=== PATIENT | male | born 1960 | race Caucasian/White ===

== ENCOUNTER 2021-05-03 15:48 | Inpatient (IN) | payer OTHER ==
[~2021-05-03] VITALS: Ht 170.2 cm; Wt 99.6 kg
[~2021-05-03 15:48] MED LIST: TAMIFLU 75MG CA75 MG PO
[2021-05-03 20:12] LABS: BASOPHIL 0.2 % (0-2); EOSINOPHIL 0 % (0-5); HCT 15.9 % (42.0-52.0); IRON % SATURATION 97.1 %SAT (20-50); LYMPHOCYTE 3.6 % (15-48); MCH 40.6 pg (25.0-31.0); MCHC 35.2 g/dL (32.0-36.0); MCV 115.2 fL (78.0-100.0); MONOCYTE 7.4 % (0-12); MPV 12.1 fL (6.0-9.5); NEUTROPHIL 88.1 % (41-80); NRBC 0; RBC 1.38 M/uL (4.70-6.00); RDW 17.7 % (11.5-14.0); WBC 5.5 K/uL (4.0-10.5)
[2021-05-03 20:31] LABS: LACTIC ACID 5.7 mmol/L (0.4-1.9)
[2021-05-03 20:40] LABS: HGB 5.6 g/dl (13.2-18.0)
[2021-05-03 20:41] LABS: PLT 48 K/uL (150-400)
[2021-05-03 20:58] LABS: BILIRUBIN - TOTAL 8.2 mg/dL (0.2-1.0); BUN/CREAT RATIO (CALC) 13.7 RATIO; CREATININE 3.87 mg/dL (0.67-1.17); GLOBULIN (CALCULATION) 2.6 g/dL; INR 3.24 (0.9-1.2); POTASSIUM 5.5 mmol/L (3.5-5.1); TOTAL PROTEIN 4.6 g/dL (6.4-8.2)
[2021-05-04 04:46] LABS: BASOPHIL 0 % (0-2); EOSINOPHIL 0 % (0-5); LYMPHOCYTE 5.8 % (15-48); MCHC 33.3 g/dL (32.0-36.0); MONOCYTE 6.8 % (0-12); MPV 11.6 fL (6.0-9.5); NEUTROPHIL 86.7 % (41-80); NRBC 0.7; RBC 1.95 M/uL (4.70-6.00); RDW 21.8 % (11.5-14.0); WBC 2.9 K/uL (4.0-10.5)
[2021-05-04 05:02] LABS: MCH 35.9 pg (25.0-31.0); MCV 107.7 fL (78.0-100.0)
[2021-05-04 05:13] LABS: PLT 35 K/uL (150-400)
[2021-05-04 05:18] LABS: ALBUMIN 2.2 g/dL (3.4-5.0); BILIRUBIN - TOTAL 9.1 mg/dL (0.2-1.0); BUN/CREAT RATIO (CALC) 14.8 RATIO; CREATININE 3.65 mg/dL (0.67-1.17); GLOBULIN (CALCULATION) 2.5 g/dL; POTASSIUM 5.3 mmol/L (3.5-5.1); TOTAL PROTEIN 4.7 g/dL (6.4-8.2)
--- NOTE | 2021-05-04 08:17 | NUR ---
[facility] STARTED AT 0754 AT 125 ML/HR. NO S/S REACTION AFTER 15 MINUTES. VSS AT THIS ASSESSMENT. INCREASED RATE TO 175 ML/HR.
[2021-05-04] MEDS ORDERED: XIFAXAN550 MG PO (09:25)
[2021-05-04] MEDS ORDERED: ALLOPURINOL300 MG PO (09:26)
[2021-05-04] MEDS ORDERED: CONSTULOSE10 GM/15 M PO (09:26)
[2021-05-04] MEDS ORDERED: LOPRESSOR25 MG PO (09:27)
[2021-05-04] MEDS ORDERED: LASIX40 MG PO (09:28)
[2021-05-04] MEDS ORDERED: ALDACTONE100 MG PO (09:28)
[2021-05-04] MEDS ORDERED: PRILOSEC20 MG PO (09:28)
[2021-05-04 11:25] LABS: WBC (FLUID) 6494 WBC/uL
[2021-05-04 11:28] LABS: BILIRUBIN NEGATIVE (NEGATIVE); BLOOD TRACE-INTACT Ery/uL (NEGATIVE); CLARITY CLEAR (CLEAR); COLOR YELLOW (YELLOW); GLUCOSE (U) NORMAL (NORMAL); LEUKOCYTES TRACE Leu/uL (NEGATIVE); NITRITE NEGATIVE (NEGATIVE); PROTEIN NEGATIVE (NEGATIVE); SPECIFIC GRAVITY 1.015 (1.001-1.030); UROBILINOGEN 0.2 mg/dL (0.2-1.0); pH 5.5 (5.0-9.0)
[2021-05-04 11:58] LABS: BACTERIA TRACE; URINARY RBC RARE
[2021-05-04 12:34] LABS: CLARITY (FLUID) HAZY; COLOR (FLUID) YELLOW; RBC (FLUID) 1300 RBC/uL
[2021-05-04 14:59] LABS: HCT 21.5 % (42.0-52.0); HGB 7.4 g/dL (13.2-18.0)
[2021-05-05 04:35] LABS: BASOPHIL 0 % (0-2); EOSINOPHIL 0.2 % (0-5); HCT 20.1 % (42.0-52.0); LYMPHOCYTE 5.7 % (15-48); MCH 35.4 pg (25.0-31.0); MCHC 34.8 g/dL (32.0-36.0); MONOCYTE 8.6 % (0-12); NEUTROPHIL 84.5 % (41-80); NRBC 0; RBC 1.98 M/uL (4.70-6.00); RDW 22.6 % (11.5-14.0); WBC 4.1 K/uL (4.0-10.5)
[2021-05-05 05:02] LABS: INR 3.66 (0.9-1.2); PROTHROMBIN TIME 35.3 SECONDS (11.8-13.4)
[2021-05-05 05:17] LABS: MCV 101.5 fL (78.0-100.0)
[2021-05-05 05:21] LABS: PLT 31 K/uL (150-400)
[2021-05-05 05:22] LABS: ALBUMIN 2.9 g/dL (3.4-5.0); BILIRUBIN - TOTAL 10.5 mg/dL (0.2-1.0); BUN/CREAT RATIO (CALC) 16.3 RATIO; CREATININE 3.32 mg/dL (0.67-1.17); POTASSIUM 4.2 mmol/L (3.5-5.1); TOTAL PROTEIN 4.9 g/dL (6.4-8.2)
[2021-05-06 04:27] LABS: BASOPHIL 0 % (0-2); EOSINOPHIL 0.6 % (0-5); HCT 20.9 % (42.0-52.0); HGB 7.3 g/dl (13.2-18.0); MCH 34.9 pg (25.0-31.0); MCHC 34.9 g/dL (32.0-36.0); MONOCYTE 13.2 % (0-12); MPV 13.2 fL (6.0-9.5); NEUTROPHIL 79.3 % (41-80); NRBC 0; RBC 2.09 M/uL (4.70-6.00); WBC 3.2 K/uL (4.0-10.5)
[2021-05-06 04:33] LABS: PLT 24 K/uL (150-400)
[2021-05-06 04:38] LABS: INR 3.58 (0.9-1.2); PROTHROMBIN TIME 34.7 SECONDS (11.8-13.4)
[2021-05-06 04:50] LABS: ALBUMIN 3.1 g/dL (3.4-5.0); BILIRUBIN - TOTAL 10.4 mg/dL (0.2-1.0); BUN/CREAT RATIO (CALC) 16.5 RATIO; CREATININE 2.78 mg/dL (0.67-1.17); POTASSIUM 3.6 mmol/L (3.5-5.1); TOTAL PROTEIN 5.1 g/dL (6.4-8.2)
[2021-05-07 04:52] LABS: BASOPHIL 0 % (0-2); EOSINOPHIL 1.2 % (0-5); HCT 21.5 % (42.0-52.0); HGB 7.5 g/dl (13.2-18.0); LYMPHOCYTE 7.9 % (15-48); MCHC 34.9 g/dL (32.0-36.0); MCV 100.5 fL (78.0-100.0); MONOCYTE 14.9 % (0-12); MPV 12.4 fL (6.0-9.5); NEUTROPHIL 75.6 % (41-80); NRBC 0; RBC 2.14 M/uL (4.70-6.00); RDW 22.5 % (11.5-14.0); WBC 2.4 K/uL (4.0-10.5)
[2021-05-07 04:56] LABS: PLT 24 K/uL (150-400)
[2021-05-07 05:00] LABS: INR 2.67 (0.9-1.2); PROTHROMBIN TIME 27.5 SECONDS (11.8-13.4)
[2021-05-07 05:07] LABS: ALBUMIN 3.4 g/dL (3.4-5.0); BILIRUBIN - TOTAL 10.9 mg/dL (0.2-1.0); BUN/CREAT RATIO (CALC) 16.8 RATIO; CREATININE 2.44 mg/dL (0.67-1.17); GLOBULIN (CALCULATION) 1.8 g/dL; POTASSIUM 3.4 mmol/L (3.5-5.1); TOTAL PROTEIN 5.2 g/dL (6.4-8.2)
[2021-05-08 05:44] LABS: BASOPHIL 0 % (0-2); EOSINOPHIL 3.9 % (0-5); HCT 19.8 % (42.0-52.0); HGB 6.9 g/dl (13.2-18.0); LYMPHOCYTE 7.8 % (15-48); MCH 35.8 pg (25.0-31.0); MCHC 34.8 g/dL (32.0-36.0); MCV 102.6 fL (78.0-100.0); MONOCYTE 15.6 % (0-12); MPV 11.4 fL (6.0-9.5); NEUTROPHIL 71.6 % (41-80); NRBC 0; RBC 1.93 M/uL (4.70-6.00); RDW 22.7 % (11.5-14.0)
[2021-05-08 05:53] LABS: WBC 1.8 K/uL (4.0-10.5)
[2021-05-08 05:56] LABS: INR 3.95 (0.9-1.2); PROTHROMBIN TIME 37.5 SECONDS (11.8-13.4)
[2021-05-08 06:07] LABS: ALBUMIN 3.5 g/dL (3.4-5.0); BILIRUBIN - TOTAL 12.1 mg/dL (0.2-1.0); BUN/CREAT RATIO (CALC) 18.5 RATIO; CREATININE 2.16 mg/dL (0.67-1.17); GLOBULIN (CALCULATION) 1.6 g/dL; POTASSIUM 3.5 mmol/L (3.5-5.1); TOTAL PROTEIN 5.1 g/dL (6.4-8.2)
[2021-05-08 06:49] LABS: PLT 18 K/uL (150-400)
--- NOTE | 2021-05-08 15:30 | NUR ---
05/08/21 Mr. Fernandez lives at home with his spouse, 22 y/o twin children and a 2 y/o grandson. Mr. Fernandez has someone with him the majority of time. He has a rw and cane. - M/M Rebecca reports the specialist to have said they would be appropriate for Hospice services. The Rebecca state they are not ready for Hospice at this time. The Rebecca were educated re: Hospice being appropriate when they wish to have treatment in the home to address symptoms opposed to returning to the hospital. Nickyy were also informed that an educational visit could be arrange. HH services were also explained.
[2021-05-09 04:21] LABS: BASOPHIL 0 % (0-2); EOSINOPHIL 3.6 % (0-5); HCT 20.3 % (42.0-52.0); LYMPHOCYTE 8.4 % (15-48); MCH 34.8 pg (25.0-31.0); MCHC 34.5 g/dL (32.0-36.0); MPV 13.8 fL (6.0-9.5); NEUTROPHIL 75.4 % (41-80); NRBC 0; RBC 2.01 M/uL (4.70-6.00); RDW 23.2 % (11.5-14.0)
[2021-05-09 04:27] LABS: PLT 18 K/uL (150-400); WBC 1.7 K/uL (4.0-10.5)
[2021-05-09 04:37] LABS: PROTHROMBIN TIME 49.4 SECONDS (11.8-13.4)
[2021-05-09 04:45] LABS: ALBUMIN 3.6 g/dL (3.4-5.0); BILIRUBIN - TOTAL 13.6 mg/dL (0.2-1.0); BUN/CREAT RATIO (CALC) 19.7 RATIO; CREATININE 2.08 mg/dL (0.67-1.17); GLOBULIN (CALCULATION) 1.5 g/dL; POTASSIUM 3.4 mmol/L (3.5-5.1); TOTAL PROTEIN 5.1 g/dL (6.4-8.2)
[2021-05-09 04:49] LABS: INR 5.6 (0.9-1.2)
[2021-05-10] MEDS ORDERED: FUROSEMIDE 40MG40 MG PO (08:01)
[2021-05-10] MEDS ORDERED: MIDODRINE HCL10 MG PO (08:01)
[2021-05-10] MEDS ORDERED: OXY-IR 5MG5 MG PO (08:02)
--- NOTE | 2021-05-10 13:07 | NUR ---
05/10/21 Referals were made to [facility] for a 3in1 and [facility]. Pt educated to affliation. [facility] will deliver to the home. - The Chucking Machine Set Up Operator Tool was requested to see Mr. Fernandez to discusse Medicaid Spend Down and Financial Assistance. Patient was referred to the [employer] to discuss benefits.
== END 2021-05-10 12:25 | disposition home health service (06) | DRG 441 ==
LOC: FER 15:48 → FTCU 21:29 → FICU 05-04 16:47 → FMS 05-09 00:27
PROVIDERS: Allergy & Immunology Allergy; Emergency Medicine; Internal Medicine; Nurse Practitioner; ADMIT Internal Medicine
PROC: 30233N1 Transfusion of Nonautologous Red Blood Cells into Peripheral Vein, Percutaneous Approach (ICD-10-PCS; 2021-05-03)
PROC: 30233N1 Transfusion of Nonautologous Red Blood Cells into Peripheral Vein, Percutaneous Approach (ICD-10-PCS; 2021-05-04)
PROC: 0W9G3ZX Drainage of Peritoneal Cavity, Percutaneous Approach, Diagnostic (ICD-10-PCS; 2021-05-04)
PROC: 30233N1 Transfusion of Nonautologous Red Blood Cells into Peripheral Vein, Percutaneous Approach (ICD-10-PCS; 2021-05-05)
PROC: 30233N1 Transfusion of Nonautologous Red Blood Cells into Peripheral Vein, Percutaneous Approach (ICD-10-PCS; 2021-05-08)
PROC: 3E033XZ Introduction of Vasopressor into Peripheral Vein, Percutaneous Approach (ICD-10-PCS; 2021-05-08)
PROC: 30233N1 Transfusion of Nonautologous Red Blood Cells into Peripheral Vein, Percutaneous Approach (ICD-10-PCS; principal; 2021-05-09)
PROC: 30233K1 Transfusion of Nonautologous Frozen Plasma into Peripheral Vein, Percutaneous Approach (ICD-10-PCS; 2021-05-09)
DX: K76.7 Hepatorenal syndrome (principal); K65.2 Spontaneous bacterial peritonitis; D61.818 Other pancytopenia; D68.9 Coagulation defect, unspecified; E87.2 Acidosis; N17.9 Acute kidney failure, unspecified; R18.8 Other ascites; K62.5 Hemorrhage of anus and rectum; D62 Acute posthemorrhagic anemia; Z20.822 Contact with and (suspected) exposure to COVID-19; I95.9 Hypotension, unspecified; Z66 Do not resuscitate; K72.90 Hepatic failure, unspecified without coma; K74.60 Unspecified cirrhosis of liver; G47.30 Sleep apnea, unspecified; K21.9 Gastro-esophageal reflux disease without esophagitis; K59.00 Constipation, unspecified; M10.9 Gout, unspecified; N18.9 Chronic kidney disease, unspecified; D63.1 Anemia in chronic kidney disease; Z98.890 Other specified postprocedural states; Z87.891 Personal history of nicotine dependence
CPT/HCPCS: 36415; 36430; 36600; 71045; 76705; 80053; 81001; 82043; 82270; 82803; 83540; 83550; 83605; 84145; 84300; 84484; 85014; 85018; 85025; 85610; 85730; 86850; 86900; 86901; 86922; 87040; 87070; 87088; 87205; 89051; 93005; 97162; 97166; 97530-GP; 97535; J0692; J2543; J3430; J7030; J7040; J7050; J7070; P9016; P9017; P9046; U0002

== ENCOUNTER 2021-05-23 15:59 | Day surgery (SDCO) | payer OTHER ==
[~2021-05-23] VITALS: Ht 170.2 cm; Wt 99.8 kg
[~2021-05-23 15:59] MED LIST changes: +ALDACTONE100 MG PO; +ALLOPURINOL300 MG PO; +CONSTULOSE10 GM/15 M PO; +FUROSEMIDE 40MG40 MG PO; +LASIX40 MG PO; +LOPRESSOR25 MG PO; +MIDODRINE HCL10 MG PO; +OXY-IR 5MG5 MG PO; +PRILOSEC20 MG PO; +XIFAXAN550 MG PO
[2021-05-23 18:24] LABS: BASOPHIL 0 % (0-2); EOSINOPHIL 0.3 % (0-5); HCT 18.6 % (42.0-52.0); LYMPHOCYTE 6.8 % (15-48); MCH 35.2 pg (25.0-31.0); MCHC 33.3 g/dL (32.0-36.0); MCV 105.7 fL (78.0-100.0); NEUTROPHIL 83.3 % (41-80); NRBC 0; RBC 1.76 M/uL (4.70-6.00); RDW 27.5 % (11.5-14.0); WBC 3.2 K/uL (4.0-10.5)
[2021-05-23 18:26] LABS: HGB 6.2 g/dl (13.2-18.0)
[2021-05-23 18:27] LABS: PLT 26 K/uL (150-400)
[2021-05-23 18:35] LABS: INR 4.33 (0.9-1.2); PROTHROMBIN TIME 40.3 SECONDS (11.8-13.4)
[2021-05-23 18:36] LABS: PTT 49.3 SECONDS (24.4-34.7)
[2021-05-23 18:53] LABS: LACTIC ACID 4.3 mmol/L (0.4-1.9)
[2021-05-23 19:00] LABS: ALBUMIN 3.7 g/dL (3.4-5.0); BILIRUBIN - TOTAL 13.6 mg/dL (0.2-1.0); CREATININE 8.17 mg/dL (0.67-1.17); GLOBULIN (CALCULATION) 2.2 g/dL; TOTAL PROTEIN 5.9 g/dL (6.4-8.2)
[2021-05-24 01:40] LABS: INR 3.29 (0.9-1.2); PROTHROMBIN TIME 32.4 SECONDS (11.8-13.4)
[2021-05-24 07:02] LABS: HCT 21.7 % (42.0-52.0); HGB 7.3 g/dl (13.2-18.0); MCH 33.8 pg (25.0-31.0); MCHC 33.6 g/dL (32.0-36.0); MPV 12.8 fL (6.0-9.5); RBC 2.16 M/uL (4.70-6.00); RDW 26.8 % (11.5-14.0); WBC 3.3 K/uL (4.0-10.5)
[2021-05-24 07:36] LABS: CREATININE 8.1 mg/dL (0.67-1.17); PHOSPHORUS 6.2 mg/dL (2.6-4.7)
[2021-05-24 07:37] LABS: MCV 100.5 fL (78.0-100.0)
[2021-05-24 13:08] LABS: BILIRUBIN 3+ mg/dL (NEGATIVE); BLOOD 3+ Ery/uL (NEGATIVE); GLUCOSE (U) NORMAL (NORMAL); LEUKOCYTES 3+ Leu/uL (NEGATIVE); NITRITE NEGATIVE (NEGATIVE); PROTEIN 3+ mg/dL (NEGATIVE); SPECIFIC GRAVITY 1.015 (1.001-1.030); pH 6.5 (5.0-9.0)
[2021-05-24 13:13] LABS: CLARITY CLOUDY (CLEAR); COLOR BROWN (YELLOW)
[2021-05-24 13:17] LABS: URINARY RBC TNTC; URINARY WBC TNTC
[2021-05-24 13:19] LABS: BACTERIA 2+; SQUAMOUS EPITHELIAL CELLS RARE
[2021-05-24 13:20] LABS: AMORPHOUS URATES CRYSTALS MODERATE; BILIRUBIN CRYSTALS MODERATE
[2021-05-24 14:09] LABS: CREATININE 8.2 mg/dL (0.67-1.17); POTASSIUM 6.1 mmol/L (3.5-5.1)
[2021-05-24 14:22] LABS: BASOPHIL 0 % (0-2); EOSINOPHIL 0.3 % (0-5); HCT 21.3 % (42.0-52.0); HGB 7.2 g/dl (13.2-18.0); LYMPHOCYTE 4.4 % (15-48); MCH 34.1 pg (25.0-31.0); MCHC 33.8 g/dL (32.0-36.0); MCV 100.9 fL (78.0-100.0); MONOCYTE 9.1 % (0-12); MPV 13.2 fL (6.0-9.5); NEUTROPHIL 85.6 % (41-80); NRBC 0.6; RBC 2.11 M/uL (4.70-6.00); RDW 27.3 % (11.5-14.0); WBC 3.4 K/uL (4.0-10.5)
[2021-05-24 14:45] LABS: PLT 35 K/uL (150-400)
--- NOTE | 2021-05-24 22:30 | NUR ---
PATIENT IS ON COMFORT CARE. FAMILY IS AT BEDSIDE.
[2021-05-25] MEDS ORDERED: PREVALITE4 GM PO (14:34)
[2021-05-25] MEDS ORDERED: OXY-IR 5MG5 MG PO (14:35)
--- NOTE | 2021-05-25 14:44 | NUR ---
[phone] IS [facility] PHONE NUMBER THEY HAVE HIS ORDER AND WILL CALL YOU ONCE EQUIPMENT IS IN HOME SO YOU CAN D/C PATIENT HOME WITH HOSPICE
--- NOTE | 2021-05-25 15:05 | NUR ---
05/25/21 This case management social worker met with Ozzy/Ozzy Fernandez and 2 of their children. They decided to go home with Hospice. A referral was made to Hospice. Hospice will arrange for 02, hospital bed, wc, and 3in1. - Report given to MS SHAYY Howard.
--- NOTE | 2021-05-25 16:28 | NUR ---
[address] ACUNA ABOUT THE [place] CATH AND THE CENTRAL LINE IN THIS PATIENT THAT IS GOING HOME WITH HOSPICE. NEW ORDERS TO LEAVE THE FOLWY CATH AND CENTRAL IN PLACE FOR HOSPICE TO USE WHILE AT HOME. HOSPICE NOTIFED OF THE NEW ORDERS. ALSO EXPLAINED TO THE FAMILY ALSO. AWAITING THE HOSPITAL BED AND THE OXYGEN TO GET SET UP AT HOME BEFORE DISCHARGING THE PATIENT HOME VIA EMS.
--- NOTE | 2021-05-25 17:36 | NUR ---
HOME WITH EMS PER STRETCHER, HOSPICE WAS NOTIFED OF THE DISCHARGE. AND PAGIE WAS NOTIFED OF THE NEW ORDERS TO SENT HOME WITH THE CENTRAL LINE INTACT DUE TO THE INCREASED INR. PER DR. ACUNA'S ORDERS
== END 2021-05-25 17:36 | disposition hospice, home (50) ==
LOC: FER 15:59 → FMS 05-24 19:44
PROVIDERS: Emergency Medicine; Internal Medicine; ADMIT Internal Medicine
DX: K72.90 Hepatic failure, unspecified without coma (principal); K76.7 Hepatorenal syndrome; D62 Acute posthemorrhagic anemia; M54.9 Dorsalgia, unspecified; R10.9 Unspecified abdominal pain; G47.30 Sleep apnea, unspecified; K21.9 Gastro-esophageal reflux disease without esophagitis; M10.9 Gout, unspecified; Z79.899 Other long term (current) drug therapy; Z86.73 Personal history of transient ischemic attack (TIA), and cerebral infarction without residual deficits; Z87.891 Personal history of nicotine dependence
CPT/HCPCS: 36415; 36430; 71045; 80048; 80053; 81001; 82140; 83605; 83735; 84100; 84484; 85025; 85610; 85730; 86850; 86900; 86901; 86922; 87040; 87088; 93005; 94760; 96365; 96366; 96367; 96368; 96375; 96376; C9113; G0378; G0480; J0610; J0692; J1170; J2405; J2543; J3370; J7030; J7040; J7050; J7060; P9016; P9017; P9035